=== PATIENT | male | born 1950 | race Caucasian/White ===

== ENCOUNTER 2020-12-27 11:16 | Day surgery (SDC) | payer MEDICARE ==
[~2020-12-27] VITALS: Ht 182.9 cm; Wt 126.8 kg
[~2020-12-27 11:16] MED LIST: 00186-0372-20 IH; ADVIL200 MG PO; ALEVE 220MG220 MG PO; ASPIRIN E.C. 8181 MG PO; CARDIZEM 60MG T60 MG PO; CARTIA XT300 MG PO; CENTRUM SILVER1 CTB PO; CORDARONE200 MG/TAB PO; GLUCOPHAGE500 MG/TAB PO; HYDROCORTISO28.35 G1 TP; HYZAAR 25 MG-101 TAB PO; LASIX 20MG TABL20 MG PO; LASIX 40MG TABL40 MG PO; MUCINEX 60600 MG/TA1 PO; NORCO 325 MG-51 TAB PO; ROXICODONE 55 MG/TAB PO; RT SPIRIVA18 MCG IH; TIAZAC360 MG PO; TOPROL XL 50MG50 MG PO; TYLENOL 500MG500 MG PO; VENTOLIN0.09 MG IH; VITAMIN C500 MG PO
[2020-12-27] MEDS ORDERED: CARDIZEM 60MG T60 MG PO (11:59)
[2020-12-27] MEDS ORDERED: CARTIA XT300 MG PO (12:00)
[2020-12-27] MEDS ORDERED: HYZAAR 25 MG-101 TAB PO (12:00)
[2020-12-27] MEDS ORDERED: LASIX 40MG TABL40 MG PO (12:00)
[2020-12-27] MEDS ORDERED: TOPROL XL 25MG25 MG PO (12:01)
[2020-12-27] MEDS ORDERED: 00186-0370-20 IH (12:02)
[2020-12-27] MEDS ORDERED: OXY IR5 MG PO (12:02)
[2020-12-27] MEDS ORDERED: ASPIRIN 81M81 MG/TA2 PO (12:02)
[2020-12-27] MEDS ORDERED: ATROVENT I0.2 MG/1 M IH (12:03)
[2020-12-27 12:11] VITALS: BP 111/85; PULSE 58; TEMP 97
[2020-12-27 13:25] VITALS: BP 105/68; PULSE 58; TEMP 97.8
--- NOTE | 2020-12-27 13:25 | NUR ---
The patient arrived back to [facility] from the [facility]oscopy suite at this time. The patient ambulated from the cart to the recliner in his room with the stand by assistance of two nurses and use of his cane. Post operative vital signs were started at this time. The patient's is at his bedside at this time. the patient agrees to try some grape juice and a muffin at this time. Will continue to monitor the patient.
[2020-12-27 13:40] VITALS: BP 107/75; PULSE 60
--- NOTE | 2020-12-27 13:40 | NUR ---
The patient has finished his muffin and juice and appeared to tolerate them both well. Vital signs appear stable. Will continue to monitor the patient.
[2020-12-27 13:55] VITALS: BP 114/66; PULSE 72
--- NOTE | 2020-12-27 13:55 | NUR ---
Discharge instructions were reviewed with the patient and his at this time. They both verbalized understanding and have no questions for the nurse at this time. IV removed and a pressure dressing was applied to the site. The nurse instructed the patient to get dressed and notify the staff when he is ready to be escorted out.
[2020-12-27 16:33] VITALS: BP 105/68; PULSE 58
== END 2020-12-27 14:10 | disposition home or self-care (01) ==
LOC: SDCO 11:16
DX: K74.60 Unspecified cirrhosis of liver (principal); I85.00 Esophageal varices without bleeding; R94.5 Abnormal results of liver function studies; I10 Essential (primary) hypertension; I48.91 Unspecified atrial fibrillation; J44.9 Chronic obstructive pulmonary disease, unspecified; E11.9 Type 2 diabetes mellitus without complications; G47.33 Obstructive sleep apnea (adult) (pediatric); Z87.891 Personal history of nicotine dependence; Z79.899 Other long term (current) drug therapy; Z99.89 Dependence on other enabling machines and devices; Z86.73 Personal history of transient ischemic attack (TIA), and cerebral infarction without residual deficits; Z79.82 Long term (current) use of aspirin
CPT/HCPCS: J2704; J7030

== ENCOUNTER → 2021-07-25 | Outpatient (CLI) | payer MEDICARE ==
[~2021-07-25] MED LIST changes: +00186-0370-20 IH; +ASPIRIN 81M81 MG/TA2 PO; +ATROVENT I0.2 MG/1 M IH; +OXY IR5 MG PO; +TOPROL XL 25MG25 MG PO
== END ==
LOC: COL.RAD 10:00
DX: D35.02 Benign neoplasm of left adrenal gland (principal); K74.60 Unspecified cirrhosis of liver
CPT/HCPCS: A9575

== ENCOUNTER → 2023-02-09 | Outpatient (CLI) | payer MEDICARE ==
[2023-02-09] VITALS (10 sets, daily range): BP systolic 105–1149; BP diastolic 64–95; PULSE 59–86; TEMP 97.8
[~2023-02-09] VITALS: Ht 182.9 cm; Wt 124.2 kg
[~2023-02-09] MED LIST changes: +ALL DAY ALLERGY10 M3 PO; +B COMPLEX #11 TA1 PO; +BROVANA15 MCG/2 M IH; +DULCOLAX STOOL100 MG PO; +HYZAAR 50-12.1 UDTAB PO; +KLOR-CON SPRIN10 MEQ PO; +LIORESAL 1010 MG/TAB PO; +MASON NATURAL2000 IU; +MUCUS RELIEF400 M1 PO; +MYSOLINE 5050 MG/TAB PO; +OSCAL 500 TAB500 MG PO; +PREDNISONE10 MG PO; +PULMICORT0.5 MG/2 M IH; +TYLENOL 8 HR PO; +VERAPAMIL180 MG/TAB PO; +VITAMIN E 400 U4001 PO; +ZEBETA10 MG PO
[2023-02-09 10:13] LABS: PROTHROMBIN TIME 10.9 SECONDS (9.7-12.8)
== END ==
LOC: CANSCHCLI → COL.RAD 09:33
PROVIDERS: Radiology Diagnostic Radiology
DX: C22.0 Liver cell carcinoma (principal); K74.60 Unspecified cirrhosis of liver; R77.2 Abnormality of alphafetoprotein

== ENCOUNTER → 2023-06-16 | Outpatient (CLI) | payer MEDICARE, OTHER ==
[~2023-06-16] MED LIST changes: +Gadoterate 20 ML VIAL IV ONE
== END ==
LOC: COL.RAD 09:52
DX: C22.0 Liver cell carcinoma (principal)
CPT/HCPCS: A9575